=== PATIENT | female | born 2000 | race Caucasian/White ===

== ENCOUNTER 2024-05-18 21:01 | Emergency (ER) | payer SELFPAY ==
[~2024-05-18] VITALS: Ht 160 cm; Wt 72.0 kg
[2024-05-18 21:12] VITALS: BP 120/82; PULSE 143; RESP 18; TEMP 36.9; O2SAT 100
[2024-05-18] MEDS: ONDANSETRON HCL 4MG/2ML INJ IV ONE (22:11)
[2024-05-18] MEDS: SODIUM CHLORIDE 0.9% 1,000 ML IV ONE (22:11)
[2024-05-18 23:23] LABS: HEMATOCRIT. 40.5 % (36.0-48.0); HEMOGLOBIN. 12.9 g/dL (12.0-16.0); MEAN CORPUSCULAR HEMOGLOBIN 28.3 pg (28.0-32.0); MEAN CORPUSCULAR HGB CONC 31.9 g/dL (31.0-37.0); MEAN CORPUSCULAR VOLUME 88.8 fL (81.0-99.0); PLATELET 308 x1000/uL (130-400); RED BLOOD CELL COUNT 4.56 mill/uL (4.2-5.4); RED CELL DISTRIBUTION WIDTH 14.6 % (11.6-14.6); WHITE BLOOD COUNT 7.1 x1000/uL (4.5-11.0)
[2024-05-18 23:39] LABS: CHLORIDE 106 mEq/L (98-107); POTASSIUM 3.6 mEq/L (3.5-5.1); SODIUM 142 mEq/L (136-145)
[2024-05-18 23:40] LABS: CALCIUM 8.8 mg/dL (8.7-10.4); CARBON DIOXIDE 23 mEq/L (21-32)
[2024-05-18 23:45] LABS: CREATININE 0.8 mg/dL (0.6-1.0); GLUCOSE 101 mg/dL (70-105); UREA NITROGEN BLOOD 17 mg/dL (9-23)
[2024-05-18 23:47] LABS: TROPONIN I HIGH SENSITIVITY 7 ng/L (3.0-34)
[2024-05-19 00:22] LABS: DIFFERENTIAL COMMENT 1
[2024-05-19 00:53] LABS: HCG SCREEN NEGATIVE
[2024-05-19] MEDS ORDERED: KETOROLAC 15MG/ML VIAL IM ONE (01:30)
[2024-05-19] MEDS: KETOROLAC 15MG/ML VIAL IV ONE (01:36)
[2024-05-19 14:25] LABS: PLATELET ESTIMATE NORMAL
== END 2024-05-19 02:08 | disposition home or self-care (01) ==
LOC: ER 21:01
DX: E86.0 Dehydration (principal); R00.0 Tachycardia, unspecified
CPT/HCPCS: 80048; 84703; 85025; 84484; 36415; 71045; 96361; 96374; 99284; 96375; J2405; J7030; Z7610; J1885